=== PATIENT | female | born 1985 | race Hispanic/Latino ===

== ENCOUNTER 2017-09-26 17:25 | Emergency (ER) | payer SELFPAY ==
[2017-09-26] MEDS ORDERED: Bacitracin Oint 1 GM U/D Packet TOP ONE ×2 (17:50→18:10)
--- NOTE | 2017-09-26 17:54 | EDM.PDOC ---
ED HPI GENERAL MEDICAL PROBLEM - General Chief Complaint: Laceration Stated Complaint: CUT THUMB Time Seen by Provider: 09/26/17 17:30 Source of Information: Reports: Patient History Limitations: Reports: No Limitations - History of Present Illness INITIAL COMMENTS - FREE TEXT/NARRATIVE: HISTORY AND PHYSICAL: History of present illness: Patient is a 31-year-old female who presents to the emergency room today with complaints of a laceration to the distal left thumb. She states she was cutting vegetables when she nicked the distal tip of her thumb. No current bleeding. Tetanus is up-to-date. Review of systems: As per history of present illness and below otherwise all systems reviewed and negative. Past medical history: As per history of present illness and as reviewed below otherwise noncontributory. Surgical history: As per history of present illness and as reviewed below otherwise noncontributory. Social history: No reported history of drug or alcohol abuse. Family history: As per history of present illness and as reviewed below otherwise noncontributory. Physical exam: General: Well-developed and well-nourished 31-year-old female. Alert and oriented. Nontoxic appearing and in no acute distress. HEENT: Atraumatic, normocephalic, pupils equal and reactive bilaterally, negative for conjunctival pallor or scleral icterus, mucous membranes moist, throat clear, neck supple, nontender, trachea midline. No drooling or trismus noted. No meningeal signs Lungs: Clear to auscultation, breath sounds equal bilaterally, chest nontender. Heart: S1S2, regular rate and rhythm without overt murmur Abdomen: Soft, nondistended, nontender. Negative for masses or hepatosplenomegaly. Negative for costovertebral tenderness. Pelvis: Stable nontender. Genitourinary: Deferred. Rectal: Deferred. Skin: 1 cm laceration of the distal tip of her left thumb pad, does not involve the nailbed. Laceration is well approximated. No current bleeding noted. Otherwise skin is intact, warm, dry. No lesions or rashes noted. Extremities: Atraumatic, negative for cords or calf pain. Neurovascular unremarkable. Neuro: Awake, alert, oriented. Cranial nerves II through XII unremarkable. Cerebellum unremarkable. Motor and sensory unremarkable throughout. Exam nonfocal. Notes: Patient is refusing sutures. She would like something for pain at this time, Toradol IM given. Area was cleansed with chlorhexidine. And a vázquez applied. Education was given. She voices understanding and is agreeable to plan of care. Denies any further questions at this time. Diagnostics: [] Therapeutics: Dermabond Impression: Thumb laceration Plan: 1. Keep the area clean and dry. Continue to monitor for signs of infection. Please avoid pealing/picking at the adhesive. 2. Tylenol and/or ibuprofen as needed for pain management. 3. Follow-up with your her very care provider in the next 1-2 days. Return to the ED as needed and as discussed. Definitive disposition and diagnosis as appropriate pending reevaluation and review of above. Left Hand Pain Score (Numeric/FACES): 10 - Related Data Allergies Allergy/AdvReac Type Severity Reaction Status Date / Time No Known Allergies Allergy Verified 09/26/17 17:47 Home Meds: Home Meds Fish Oil/Borage/Flax/Om3,6,9#1 [[place] 3-6-9 1,200 mg Softgel] 1,200 mg PO DAILY 09/26/17 [History] ED ROS GENERAL - Review of Systems Review Of Systems: ROS reveals no pertinent complaints other than HPI. ED EXAM, SKIN/RASH Exam: See Below (See dictation) ED SKIN PROCEDURES - Laceration/Wound Repair Left thumb Lac/Wound length In cm: 1 Appearance: Superficial Distal NVT: Neuro & Vascular Intact, No Tendon Injury Skin Prep: Chlorhexidine (Hibiciens), Saline Closed with: Dermabond Course - Vital Signs Last Recorded V/S: Last Vital Signs Temp 98.1 F 09/26/17 17:43 Pulse 62 09/26/17 17:43 Resp 18 09/26/17 17:43 BP 127/65 09/26/17 17:43 Pulse Ox 98 09/26/17 17:43 - Orders/Labs/Meds Orders: Active Orders 24 hr Category Date Time Status Ketorolac [Toradol] Med 09/26/17 18:02 Once 60 mg IM ONETIME ONE Octyl 2-Cyanoacrylate [Dermabond Advance] Med 09/26/17 18:02 Once 1 applic TOP ONETIME ONE Meds: Medications Discontinued Medications Generic Name Dose Route Start Last Admin Trade Name Freq PRN Reason Stop Dose Admin Bacitracin 1 dose 09/26/17 17:50 Bacitracin Oint 1 Gm TOP 09/26/17 17:51 ONETIME ONE Lidocaine HCl 5 ml 09/26/17 17:50 Xylocaine-Mpf 1% INJECT 09/26/17 17:51 ONETIME ONE Departure - Departure Time of Disposition: 18:04 Disposition: Home, Self-Care 01 Clinical Impression: Laceration - Discharge Information Instructions: Laceration Care, Adult, [id number] Referrals: PCP,None [Primary Care Provider] - Forms: ED Department Discharge Additional Instructions: The following information is given to patients seen in the emergency department who are being discharged to home. This information is to outline your options for follow-up care. We provide all patients seen in our emergency department with a follow-up referral. The need for follow-up, as well as the timing and circumstances, are variable depending upon the specifics of your emergency department visit. If you don't have a primary care physician on staff, we will provide you with a referral. We always advise you to contact your personal physician following an emergency department visit to inform them of the circumstance of the visit and for follow-up with them and/or the need for any referrals to a consulting specialist. The emergency department will also refer you to a specialist when appropriate. This referral assures that you have the opportunity for follow-up care with a specialist. All of these measure are taken in an effort to provide you with optimal care, which includes your follow-up. Under all circumstances we always encourage you to contact your private physician who remains a resource for coordinating your care. When calling for follow-up care, please make the office aware that this follow-up is from your recent emergency room visit. If for any reason you are refused follow-up, please contact the [facility] at and asked to speak to the emergency department charge nurse. [facility] [address] [place] [id number] 1. Keep the area clean and dry. Continue to monitor for signs of infection. Please avoid pealing/picking at the adhesive. 2. Tylenol and/or ibuprofen as needed for pain management. 3. Follow-up with your her very care provider in the next 1-2 days. Return to the ED as needed and as discussed. - My Orders Last 24 Hours: My Active Orders 09/26/17 18:02 Ketorolac [Toradol] 60 mg IM ONETIME ONE Octyl 2-Cyanoacrylate [Dermabond Advance] 1 applic TOP ONETIME ONE - Assessment/Plan Last 24 Hours: My Active Orders 09/26/17 18:02 Ketorolac [Toradol] 60 mg IM ONETIME ONE Octyl 2-Cyanoacrylate [Dermabond Advance] 1 applic TOP ONETIME ONE
[2017-09-26] MEDS ORDERED: Octyl 2-Cyanoacrylate 1 Tube TOP ONE (18:02)
[2017-09-26] MEDS ORDERED: Ketorolac 60 MG/2 ML SDV IM ONE (18:02)
[2017-09-26] MEDS ORDERED: Aspirin 325 MG Tab PO ONE (18:09)
[2017-09-26] MEDS ORDERED: Diphtheria,Pertussis(Acell),Tetanus Vaccine 0.5 ML Syringe IM ONE (18:12)
== END 2017-09-26 19:00 | disposition home or self-care (01) ==
LOC: MW.ED 17:25
DX: S61.012A Laceration without foreign body of left thumb without damage to nail, initial encounter (principal); Z23 Encounter for immunization; W26.9XXA Contact with unspecified sharp object(s), initial encounter; Y93.G3 Activity, cooking and baking; Z79.899 Other long term (current) drug therapy
CPT/HCPCS: 12001; 90471; 90715; 96372; 99283; A9270; J1885; 99282